=== PATIENT | female | born 2000 | race Caucasian/White ===

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

== ENCOUNTER 2020-01-08 12:35 | Emergency (ER) | payer OTHER, SELFPAY ==
--- NOTE | ~2020-01-08 | US_ITS ---
EXAMINATION: US OB <=14 wk fetus w TV DATE: 01/08/2020 14:43 INDICATION: Pelvic pain during first trimester TECHNIQUE: Real-time pelvic transabdominal and transvaginal ultrasound was performed. COMPARISON: None. FINDINGS: The uterus measures 5.9 x 4.6 x 3.9 cm. The endometrial thickness measures 12 mm. No intra uterine gestational sac is identified. The right ovary measures 2.4 x 2.1 x 2.1 cm. The left ovary me asures 3.4 x 4.4 x 3.9 cm and contains a 3.8 cm cyst. There is normal vascular flow in the ovaries. T here is a small amount of likely physiologic free fluid in the pelvis. IMPRESSION: 1. of unknown location. Although no intrauterine gestational sac is seen, this may be due t o early gestation. If the patient is clinically stable, recommend followup with serial beta-hCG and u ltrasound. Reviewed, dictated and finalized at location A. IMPRESSION: 1. of unknown location. Although no intrauterine gestational sac is s een, this may be due to early gestation. If the patient is clinically stable, r ecommend followup with serial beta-hCG and ultrasound.
[2020-01-08 12:38] VITALS: BP 150/70; PULSE 77; RESP 18; TEMP 36.8; O2SAT 100
[2020-01-08 14:10] LABS: Basophils Percent Auto 0.3 % (0.2-1.2); Eosinophils Percent Auto 0.5 % (0-4.4); Hematocrit 37.7 % (37.0-47.0); Hemoglobin 12.7 g/dL (12.0-15.0); Immature Granulocyte Absolute 0.01 K/mm3 (0.00-0.031); Immature Granulocyte Percent A 0.2 % (0-0.5); Lymphocytes Absolute Auto 1.56 K/mm3 (0.9-3.2); Lymphocytes Percent Auto 23.6 % (18.3-44.2); Mean Corpuscular HGB Conc 33.7 g/dl (32-36); Mean Corpuscular Volume 89.1 fl (80-100); Mean Platelet Volume 10.3 fl (7.4-10.4); Monocytes Absolute Auto 0.4 K/mm3 (0.1-0.6); Monocytes Percent Auto 5.4 % (2.6-8.5); Neutrophils Absolute Auto 4.6 K/mm3 (1.3-6.7); Platelet Count Result 327 k/mm3 (150-375); Red Blood Count 4.23 M/mm3 (4.2-5.4); Red Cell Distribution Width 12.1 % (11.5-14.5); White Blood Count 6.6 K/mm3 (4.5-10.0)
[2020-01-08 14:17] LABS: Add Urine Microscopic? NO; Appearance Urine Clear (Clear); Bilirubin Urine Negative (Negative); Blood Urine Negative (Negative); Color Urine Yellow (Yellow); Glucose Urine UA Negative (Negative); Ketones Urine Negative (Negative); Leukocyte Esterase Ur Negative LEU/UL (Negative); Nitrate Urine Negative (Negative); Protein Urine Negative (Negative); Specific Grav Ur 1.025 (1.001-1.035); Urobilinogen Urine Negative mg/dL (<2.0)
[2020-01-08 14:22] LABS: Alanine Aminotransferase 13 U/L (4-35); Albumin Level 4.3 g/dL (3.7-5.6); Alkaline Phosphatase 52 U/L (45-116); Anion Gap 7 mmol/L (8-16); Aspartate Amino Transferase 22 U/L (14-36); Bilirubin,Total 0.6 mg/dL (0.2-1.3); Blood Urea Nitrogen 12 mg/dL (8-21); Calcium 9.7 mg/dL (8.9-10.7); Carbon Dioxide 26 mmol/L (22-30); Chloride 106 mmol/L (98-107); Estimated CRCL calculation 88 ml/min; Estimated Glomerular Filt Rate > 60; Glucose 83 mg/dL (65-105); Potassium 3.9 mmol/L (3.4-5.0); Sodium 139 mmol/L (134-143)
[2020-01-08 14:39] LABS: Beta HCG Quantitative 179.69 mIU/ML
--- NOTE | 2020-01-08 15:06 | ED.GENADULT ---
HPI - General Adult General Chief complaint: Unspecified Stated complaint: needs test, needs doctors note Time Seen by Provider: 01/08/20 12:52 Source: patient Mode of arrival: ambulatory Limitations: no limitations History of Present Illness HPI narrative: This is a 19-year-old G1, P0, about 4-1/2 weeks by last menstrual period who presents to the emergency department for verification of . Reports she had a couple of positive test at home yesterday. Reports she has been having some intermittent pelvic cramping. Otherwise has no concerns. Denies nausea, vomiting, vaginal bleeding, dysuria, or hematuria. Related Data Home Medications Medication Instructions Recorded Confirmed citalopram 20 mg PO DAILY 07/01/19 07/01/19 Allergies Allergy/AdvReac Type Severity Reaction Status Date / Time blue dye Allergy Unknown Verified 01/08/20 12:40 Review of Systems Review of Systems: Narrative: CONSTITUTIONAL: Denies fever GASTROINTESTINAL: Reports abdominal/pelvic pain. Denies nausea, vomiting GENITOURINARY: Denies dysuria or hematuria. All systems reviewed & are unremarkable except as noted in HPI and below PMFSH Past Medical History Medical History (Updated 01/08/20 @ 16:08 by Priscilla Tenorio PA-C) History of anxiety Social History Social History (Updated 07/01/19 @ 15:00 by Cristina Mitchell CNP) Smoking status: Never smoker Exam Narrative: Exam Narrative: GENERAL: Well-appearing, well-nourished, and in no acute distress. HEAD: Normocephalic, atraumatic. EYES: EOMI. CHEST: Clear to auscultation. No respiratory distress. No wheezes rales or rhonchi HEART: Regular rate and rhythm. No murmur heard. Normal peripheral pulses. ABDOMEN: Soft, nontender, nondistended, normal active bowel sounds. EXTREMITIES: Normal range of motion. No edema. SKIN: Warm, dry, no rash. NEURO: No focal deficits. Alert and oriented x3. PSYCH: Normal mood and affect Course Vital Signs Vital signs: Vital Signs Temperature 98.2 F 01/08/20 12:38 Pulse Rate 77 01/08/20 12:38 Respiratory Rate 18 01/08/20 12:38 Blood Pressure 150/70 H 01/08/20 12:38 Pulse Oximetry 100 01/08/20 12:38 Temperature 98.2 F 01/08/20 12:38 Pulse Rate 77 01/08/20 12:38 Respiratory Rate 18 01/08/20 12:38 Blood Pressure 150/70 H 01/08/20 12:38 Pulse Oximetry 100 01/08/20 12:38 Medical Decision Making MDM Narrative Medical decision making narrative: Patient presents today for department for verification of . Reports she had a couple of positive test at home yesterday. Reports she has been having some intermittent pelvic cramping. Denies any vaginal bleeding. Patient is afebrile and nontoxic-appearing. CBC and metabolic panel without concerning changes. UA without evidence of infection. Quantitative beta-hCG was 179. Obstetrics ultrasound shows of unknown location. Recommend follow-up with serial beta hCG and ultrasound. Spoke with patient and family about work-up. I was awaiting consult from on-call OB and patient eloped Vital Signs Vital Signs: Vital Signs Temperature 98.2 F 01/08/20 12:38 Pulse Rate 77 01/08/20 12:38 Respiratory Rate 18 01/08/20 12:38 Blood Pressure 150/70 H 01/08/20 12:38 Pulse Oximetry 100 01/08/20 12:38 Temperature 98.2 F 01/08/20 12:38 Pulse Rate 77 01/08/20 12:38 Respiratory Rate 18 01/08/20 12:38 Blood Pressure 150/70 H 01/08/20 12:38 Pulse Oximetry 100 01/08/20 12:38 Lab Data Lab results reviewed: Yes I reviewed the patient's lab results. Result diagrams: 01/08/20 14:01 01/08/20 13:55 Labs: Lab Results 01/08/20 01/08/20 01/08/20 Range/Units 13:55 14:01 14:10 WBC 6.6 (4.5-10.0) K/mm3 RBC 4.23 (4.2-5.4) M/mm3 Hgb 12.7 (12.0-15.0) g/dL Hct 37.7 (37.0-47.0) % MCV 89.1 (80-100) fl MCH 30.0 (26-34) pg MCHC 33.7 (32-36) g/
--- NOTE | 2020-01-08 16:23 | PC.NURSE ---
pt left the dept, without dc papers and without telling staff insole lip turner and provider made aware. pt did not have iv placed during ed visit
== END 2020-01-08 16:25 | disposition left against medical advice (07) ==
PROVIDERS: Physician Assistant; Emergency Provider Emergency Medicine
DX: O26.891 Other specified pregnancy related conditions, first trimester (principal); R10.2 Pelvic and perineal pain; O99.341 Other mental disorders complicating pregnancy, first trimester; F41.9 Anxiety disorder, unspecified; Z3A.01 Less than 8 weeks gestation of pregnancy
CPT/HCPCS: 36415; 76801; 76817; 80053; 81003; 81025; 84702; 85025; 99284

== ENCOUNTER 2021-09-04 12:47 | Outpatient (CLI) | payer OTHER, SELFPAY ==
--- NOTE | ~2021-09-04 | US_ITS ---
EXAMINATION: US OB <= 14 weeks fetus DATE: 09/04/2021 13:42 INDICATION: Assess dating and viability of first trimester . TECHNIQUE: Real-time pelvic ultrasound utilizing both a transvaginal and transabdominal probe was pe rformed. The interpreting radiologist was not present for the study. COMPARISON: None. FINDINGS: The uterus measures 10.8 x 5.3 x 7.2 cm. There is an intrauterine gestational sac. A yolk sac and fe aron pole are identified. The crown rump length measures 3.2 cm, which correlates with an estimated ge stational age of 10 weeks and 0 days. heart motion is identified measuring 157 beats per minute (bpm) by M-mode Doppler. The right ovary measures 4.3 x 2.2 x 2.9 cm. The left ovary measures 3.9 x 1.9 x 1.6 cm. Vascular velma w identified in both ovaries on color Doppler. There is no free fluid in the pelvis. IMPRESSION: 1. Single living fetus with heart rate of 157 bpm. 2. Gestational age by ultrasound of 10 weeks 0 day(s) +/- 6 day(s) with ultrasound estimated date of delivery (MALIKA) of 04/02/2022. Reviewed, dictated and finalized at location B. IMPRESSION: 1. Single living fetus with heart rate of 157 bpm. 2. Gestational age by ultrasound of 10 weeks 0 day(s) +/- 6 day(s) with ultras ound estimated date of delivery (MALIKA) of 04/02/2022.
== END 2021-09-04 12:48 | disposition home or self-care (01) ==
PROVIDERS: Visit Provider Student in an Organized Health Care Education/Training Program
DX: Z34.91 Encounter for supervision of normal pregnancy, unspecified, first trimester (principal); Z3A.10 10 weeks gestation of pregnancy
CPT/HCPCS: 76801

== ENCOUNTER 2021-10-03 12:16 | Outpatient (CLI) | payer OTHER, SELFPAY ==
[2021-10-03 12:54] LABS: Basophils Percent Auto 0.2 % (0.2-1.2); Eosinophils Percent Auto 0.3 % (0-4.4); Hematocrit 34.6 % (37.0-47.0); Hemoglobin 11.8 g/dL (12.0-15.0); Immature Granulocyte Absolute 0.05 K/mm3 (0.00-0.031); Immature Granulocyte Percent A 0.5 % (0-0.5); Lymphocytes Absolute Auto 1.72 K/mm3 (0.9-3.2); Lymphocytes Percent Auto 17.3 % (18.3-44.2); Mean Corpuscular HGB Conc 34.1 g/dl (32-36); Mean Corpuscular Hemoglobin 29.8 pg (26-34); Mean Corpuscular Volume 87.4 fl (80-100); Mean Platelet Volume 9.6 fl (7.4-10.4); Monocytes Absolute Auto 0.5 K/mm3 (0.1-0.6); Neutrophils Absolute Auto 7.6 K/mm3 (1.3-6.7); Neutrophils Percent Auto 76.7 % (45.5-73.1); Platelet Count Result 347 k/mm3 (150-375); Red Blood Count 3.96 M/mm3 (4.2-5.4); Red Cell Distribution Width 12.7 % (11.5-14.5)
[2021-10-03 13:36] LABS: Vitamin D 25 Hydroxy 64.6 ng/mL
[2021-10-03 13:52] LABS: HIV 1/2 Ab P24 Ag Result Negative (Negative)
[2021-10-03 14:37] LABS: Add Urine Microscopic? YES; Appearance Urine Clear (Clear); Bilirubin Urine Negative (Negative); Blood Urine Negative (Negative); Color Urine Yellow (Yellow); Glucose Urine UA Negative (Negative); Ketones Urine Negative (Negative); Leukocyte Esterase Ur Trace LEU/UL (NEGATIVE); Nitrate Urine Negative (Negative); Protein Urine Negative (Negative); Urobilinogen Urine 0.2 mg/dL (<2.0); pH Urine 6.5 (5.0-9.0)
[2021-10-03 14:41] LABS: RBC Urine 0-2 /hpf (0-2); Squamous Epithelial Cell Urine Moderate /hpf (Few); WBC Urine 0-3 /hpf (0-3)
[2021-10-03 20:48] LABS: Hepatitis B Surface Antigen Negative (Negative); Rubella IgG Antibody 59.7 IU/ML
[2021-10-03 21:03] LABS: Hepatitis C Virus Antibody Negative (Negative)
[2021-10-04 07:12] LABS: Rapid Plasma Reagin Non-Reactive (NonReactive)
[2021-10-06 13:58] LABS: Hematocrit 36.2 % (35.0-45.0); Hemoglobin 11.6 g/dL (11.7-15.5); MCH 29.1 pg (27.0-33.0); RDW 12.5 % (11.0-15.0); Red Blood Cell Count 3.98 Mill/uL (3.80-5.10)
[2021-10-11 14:06] LABS: CF Result POSITIVE (NEGATIVE); Ethnicity NG
== END 2021-10-03 12:17 | disposition home or self-care (01) ==
PROVIDERS: Visit Provider Student in an Organized Health Care Education/Training Program
DX: Z34.02 Encounter for supervision of normal first pregnancy, second trimester (principal); F12.90 Cannabis use, unspecified, uncomplicated; Z3A.00 Weeks of gestation of pregnancy not specified
CPT/HCPCS: 36415; 81001; 81220; 82306; 83021; 84443; 85025; 86592; 86703; 86762; 86787; 86803; 86850; 86900; 86901; 87086; 87340; G0432

== ENCOUNTER 2021-12-12 10:23 | Observation (INO) | payer OTHER, SELFPAY ==
[2021-12-12 10:43] VITALS: BP 117/69; PULSE 92; BMI 20.8
--- NOTE | 2021-12-12 10:44 | OBADM ---
This patient, Cipriano Bean, admitted to the OB room OB Post 117 for observation. Patient/family oriented to hospital policies and general routines including ID bracelet, bed and alarms, visiting hours, pain management, procedures, bathroom and other care routines, personal items, smoking policy, room service/diet, and visiting hours. Patient/Family are encouraged to report perceived risks to care and to ask questions if they do not understand what they are told or what they should do.
[2021-12-12 10:45] VITALS: BP 123/71; PULSE 94
[2021-12-12 11:00] VITALS: BP 119/67; PULSE 90
--- NOTE | 2021-12-12 11:00 | PC.NURSE ---
1045- Patient presents with complaints of hip pain, pelvic pain, headache and swelling of lower legs. Patient reports she last took tylenol yesterday. Urine sent. Will call Dr. Tovar for other orders.
[2021-12-12 11:46] LABS: Appearance Urine Clear (Clear); Bilirubin Urine Negative (Negative); Blood Urine Negative (Negative); Color Urine Yellow (Yellow); Glucose Urine UA Negative (Negative); Ketones Urine Negative (Negative); Leukocyte Esterase Ur Trace LEU/UL (Negative); Nitrate Urine Negative (Negative); Protein Urine Negative (Negative); Urobilinogen Urine 0.2 mg/dL (<2.0); pH Urine 7.5 (5.0-9.0)
--- NOTE | 2021-12-12 11:53 | PC.NURSE ---
1145- results reviewed, per Dr. Tovar, orders to discharge to home with belly band and Tylenol.
[2021-12-12 12:00] LABS: Bacteria Urine Trace /hpf; Mucus Urine Rare /lpf; RBC Urine 0-2 /hpf (0-2); Squamous Epithelial Cell Urine Many /hpf (Few); WBC Urine 0-3 /hpf
[2021-12-12 12:09] LABS: Add Urine Microscopic? YES
--- NOTE | 2022-01-10 11:37 | PM.OBTRLD ---
OB - Triage/Final Diagnosis Visit Information Comments/Additional reasons for admission: I have assessed the risk for this patient, Cipriano Bean, and determined that she would benefit from observation care. Evaluation Laboratory results: Laboratory Tests 12/12/21 10:57 Urine Color Yellow Urine Appearance Clear Urine pH 7.5 Ur Specific [place] 1.020 Urine Protein Negative Urine Glucose (UA) Negative Urine Ketones Negative Ur Blood (Man) Negative Urine Nitrate Negative Urine Bilirubin Negative Urine Urobilinogen 0.2 Leukocyte Esterase Rfl Trace H Urine RBC 0-2 Urine WBC 0-3 Ur Squamous Epith Cells Many H Urine Bacteria Trace Urine Mucus Rare Final Diagnosis (1) Headache in : Code(s): O26.899 - Other specified related conditions, unspecified trimester; R51.9 - Headache, unspecified Status: Acute
== END 2021-12-12 11:54 | disposition home or self-care (01) ==
PROVIDERS: Admitting Provider Student in an Organized Health Care Education/Training Program; Visit Provider Student in an Organized Health Care Education/Training Program
DX: O99.891 Other specified diseases and conditions complicating pregnancy (principal); Z3A.00 Weeks of gestation of pregnancy not specified; M25.559 Pain in unspecified hip; R10.2 Pelvic and perineal pain; R51.9 Headache, unspecified; R22.43 Localized swelling, mass and lump, lower limb, bilateral
CPT/HCPCS: 81001; G0378; G0379

== ENCOUNTER 2021-12-26 13:33 | Outpatient (CLI) | payer OTHER, SELFPAY ==
[2021-12-26 15:04] LABS: Basophils Percent Auto 0.2 % (0.2-1.2); Eosinophils Absolute Auto 0.1 K/mm3 (0-0.3); Eosinophils Percent Auto 0.4 % (0-4.4); Hematocrit 32.2 % (37.0-47.0); Hemoglobin 10.7 g/dL (12.0-15.0); Immature Granulocyte Absolute 0.08 K/mm3 (0.00-0.031); Immature Granulocyte Percent A 0.6 % (0-0.5); Lymphocytes Absolute Auto 1.63 K/mm3 (0.9-3.2); Lymphocytes Percent Auto 12.2 % (18.3-44.2); Mean Corpuscular HGB Conc 33.2 g/dl (32-36); Mean Corpuscular Hemoglobin 30.5 pg (26-34); Mean Corpuscular Volume 91.7 fl (80-100); Mean Platelet Volume 9.7 fl (7.4-10.4); Monocytes Absolute Auto 0.6 K/mm3 (0.1-0.6); Monocytes Percent Auto 4.3 % (2.6-8.5); Neutrophils Percent Auto 82.3 % (45.5-73.1); Platelet Count Result 337 k/mm3 (150-375); Red Blood Count 3.51 M/mm3 (4.2-5.4); White Blood Count 13.4 K/mm3 (4.5-10.0)
[2021-12-26 15:19] LABS: Glucose 1 Hour PP 50gm Dose 130 mg/dL
== END 2021-12-26 13:34 | disposition home or self-care (01) ==
LOC: ANHLAB 13:37
PROVIDERS: Visit Provider Student in an Organized Health Care Education/Training Program
DX: Z34.02 Encounter for supervision of normal first pregnancy, second trimester (principal)
CPT/HCPCS: 36415; 82947; 85025

== ENCOUNTER 2022-01-13 10:02 | Observation (INO) | payer OTHER, SELFPAY ==
[2022-01-13 10:23] VITALS: BMI 22.6
--- NOTE | 2022-01-13 10:24 | OBADM ---
This patient, Cipriano Bean, admitted to the OB room OB Post 116 for observation. Patient/family oriented to hospital policies and general routines including ID bracelet, bed and alarms, visiting hours, pain management, procedures, bathroom and other care routines, personal items, smoking policy, room service/diet, and visiting hours. Patient/Family are encouraged to report perceived risks to care and to ask questions if they do not understand what they are told or what they should do.
[2022-01-13 10:31] VITALS: BP 117/76; PULSE 92
--- NOTE | 2022-01-13 10:50 | PC.NURSE ---
[address] Robb, pt here w/ complaint of mild cramping. Orders for SVE and to send urinalysis.
[2022-01-13 10:57] LABS: Add Urine Microscopic? NO; Appearance Urine Clear (Clear); Bilirubin Urine Negative (Negative); Blood Urine Negative (Negative); Color Urine Yellow (Yellow); Glucose Urine UA Negative (Negative); Ketones Urine Negative (Negative); Leukocyte Esterase Ur Negative LEU/UL (Negative); Nitrate Urine Negative (Negative); Protein Urine Negative (Negative); Specific Grav Ur 1.015 (1.001-1.035); Urobilinogen Urine 0.2 mg/dL (<2.0)
--- NOTE | 2022-01-13 11:36 | PC.NURSE ---
1129- Spoke with KODY Donald /, reviewed urinalysis results. Orders to discharge patient to home with labor precautions.
--- NOTE | 2022-02-12 12:48 | PM.OBTRLD ---
OB - Triage/Final Diagnosis Visit Information Comments/Additional reasons for admission: I have assessed the risk for this patient, Cipriano Bean, and determined that she would benefit from observation care. Evaluation Laboratory results: Laboratory Tests 01/13/22 10:43 Urine Color Yellow Urine Appearance Clear Urine pH 6.0 Ur Specific [place] 1.015 Urine Protein Negative Urine Glucose (UA) Negative Urine Ketones Negative Ur Blood (Man) Negative Urine Nitrate Negative Urine Bilirubin Negative Urine Urobilinogen 0.2 Leukocyte Esterase Rfl Negative Final Diagnosis (1) Cramping complicating , antepartum: Code(s): O26.899 - Other specified related conditions, unspecified trimester; R10.9 - Unspecified abdominal pain Status: Acute
== END 2022-01-13 11:55 | disposition home or self-care (01) ==
PROVIDERS: Admitting Provider Student in an Organized Health Care Education/Training Program; Visit Provider Obstetrics & Gynecology
DX: O26.899 Other specified pregnancy related conditions, unspecified trimester (principal); R10.9 Unspecified abdominal pain; Z3A.29 29 weeks gestation of pregnancy
CPT/HCPCS: 81003; G0378; G0379

== ENCOUNTER 2022-01-25 13:14 | Observation (INO) | payer OTHER, SELFPAY ==
[2022-01-25 13:31] VITALS: BP 124/70; PULSE 90
[2022-01-25 13:46] VITALS: BP 126/74; PULSE 85
[2022-01-25 14:01] VITALS: BP 119/71; PULSE 84
[2022-01-25 14:29] VITALS: BMI 22.3
--- NOTE | 2022-01-25 14:30 | OBADM ---
This patient, Cipriano Bean, admitted to the OB room OB Post 115 for observation. Patient/family oriented to hospital policies and general routines including ID bracelet, bed and alarms, visiting hours, pain management, procedures, bathroom and other care routines, personal items, smoking policy, room service/diet, and visiting hours. Patient/Family are encouraged to report perceived risks to care and to ask questions if they do not understand what they are told or what they should do.
--- NOTE | 2022-01-25 14:31 | PC.NURSE ---
1352- Spoke with Dr. Tovar, orders to discharge patient to home with precautions.
--- NOTE | 2022-01-25 14:32 | PC.NURSE ---
1425- Patient asking for a note to be off work indefinitely. informed patient that I could call Dr. Tovar and speak with her about the matter, or she could call and discuss with her on Thursday. patient states that she will call on thursday. Work notegiven for today.
--- NOTE | 2022-02-18 16:58 | PM.OBTRLD ---
OB - Triage/Final Diagnosis Visit Information Comments/Additional reasons for admission: I have assessed the risk for this patient, Cipriano Bean, and determined that she would benefit from observation care. Final Diagnosis (1) contractions: Code(s): O47.00 - False labor before 37 completed weeks of gestation, unspecified trimester Status: Acute
== END 2022-01-25 14:28 | disposition home or self-care (01) ==
PROVIDERS: Admitting Provider Student in an Organized Health Care Education/Training Program; Visit Provider Student in an Organized Health Care Education/Training Program
DX: O47.9 False labor, unspecified (principal); Z3A.00 Weeks of gestation of pregnancy not specified
CPT/HCPCS: G0378; G0379

== ENCOUNTER 2023-11-13 17:49 | Emergency (ER) | payer OTHER, SELFPAY ==
[2023-11-13 17:57] VITALS: BP 130/76; PULSE 108; RESP 18; TEMP 37.6; O2SAT 100
--- NOTE | 2023-11-13 18:11 | ED.NAVMDI ---
HPI - Nausea/Vomiting/Diarrhea General Chief complaint: Nausea/Vomiting/Diarrhea Stated complaint: Vomiting Time Seen by Provider: 11/13/23 18:10 Source: patient, RN notes reviewed and old records reviewed Mode of arrival: ambulatory Limitations: no limitations History of Present Illness HPI Narrative: 23 year old female who presents to [facility] care with complaints of vomiting and diarrhea since 0600 this morning. Patient reports no cough or any sore throat, denies any abdominal pain admits to some chills. Patient reports that she has not taken any OTC medications for her symptoms.Patient reports that she has not had any know ill contacts. Patient reports that her last menses was September 18 that she is not on control and she is sometimes irregular.. Patient reports that she has had 2 diarrhea stools, mainly nausea and vomiting. MD elicited complaint: nausea, vomiting and diarrhea Onset (ago): day(s) (today at 0600) Description of vomiting: food contents Description of diarrhea: watery Associated nausea: Yes Associated abdominal pain: No Treatment prior to arrival: none Related Data Allergies Allergy/AdvReac Type Severity Reaction Status Date / Time blue dye Allergy Unknown Verified 11/13/23 18:09 Review of Systems Review of Systems: CONSTITUTIONAL: Denies fever, states some chills, no sweats. EYES: Denies visual changes, redness, or discharge. ENT: Denies rhinorrhea, congestion, sore throat, or otalgia. CARDIOVASCULAR: Denies chest pain, palpitations, or edema. RESPIRATORY: Denies cough or dyspnea. GASTROINTESTINAL: Denies abdominal pain,positive for nausea, vomiting, and diarrhea. GENITOURINARY: Denies dysuria or hematuria. SKIN: Denies rash or itching. MUSCULOSKELETAL: Denies back pain, joint pain, or myalgia. NEUROLOGIC: Denies headache, numbness, or weakness. PSYCHIATRIC: Denies anxiety or depression. All systems reviewed & are unremarkable except as noted in HPI and below PMFSH Past Medical History Medical History Anxiety Asthma Frequent headaches History of ax 1 History of anxiety History of depression History of miscarriage x 1 History of seizures Migraines Family History Family History Grandparent Throat cancer Family history of cancer Cerebrovascular accident Mother Diabetes mellitus Hypertension Depression Heart disease Father Cerebrovascular accident Depression Sibling Depression Other No active medical problems Social History Social History Smoking status: Current every day smoker Tobacco type: e-cigarettes/vaping Alcohol intake: never Substance use: current Substance use type: marijuana Comments At time of signature, agree with nursing past medical, surgical, social and family history. There is no relevant family history pertinent to the presenting complaint Exam Narrative: GENERAL: Well-appearing, fairl-nourished,pale, and in no acute distress. HEAD: Normocephalic, atraumatic. EYES: PERRLA and EOMI. ENT: Nares clear, no rhinorrhea or epistaxis. Mucous membranes moist. NECK: Supple.no lymphadenopathy CHEST: Clear to auscultation. No respiratory distress.SAO2 100% on room air HEART: Regular rate and rhythm. No murmur heard. Normal peripheral pulses. ABDOMEN: Soft, nontender, nondistended, normal active bowel sounds.positive for nausea vomiting and diarrhea EXTREMITIES: Normal range of motion. No edema. SKIN: Warm, dry, no rash. NEURO: No focal deficits. Alert and oriented x3. Course Course Emergency Course: Patient is aware of diagnosis, understands and agrees to treatment plan.? Anticipatory guidance given.? Patient agrees to follow-up as directed and is aware of reasons to seek care at the emergency department. Portions of this record may have been created with
[2023-11-13 18:26] LABS: BEDSIDEPREGUCG Positive; EDUAAPPEAR Clear; EDUABILI Negative; EDUABLOOD Negative; EDUACOLOR1 Yellow; EDUAGLUCOSE Negative; EDUAKETONE 3+; EDUALEUKO Negative; EDUANITRATE Negative; EDUAPH 5.5; EDUAPROTEIN Negative; EDUAUROBILI 0.2
== END 2023-11-13 18:49 | disposition home or self-care (01) ==
PROVIDERS: Emergency Provider Registered Nurse
DX: O21.9 Vomiting of pregnancy, unspecified (principal); O99.891 Other specified diseases and conditions complicating pregnancy; R19.7 Diarrhea, unspecified; O99.519 Diseases of the respiratory system complicating pregnancy, unspecified trimester; J45.909 Unspecified asthma, uncomplicated; O99.330 Smoking (tobacco) complicating pregnancy, unspecified trimester; F17.290 Nicotine dependence, other tobacco product, uncomplicated; O99.320 Drug use complicating pregnancy, unspecified trimester; F12.90 Cannabis use, unspecified, uncomplicated; Z3A.00 Weeks of gestation of pregnancy not specified
CPT/HCPCS: 81003; 81025; 87077; 87086; 87088; 87186; 99213; G0463

== ENCOUNTER 2024-07-21 11:12 | Emergency (ER) | payer OTHER, SELFPAY ==
[2024-07-21 11:19] VITALS: BP 126/71; PULSE 83; RESP 14; TEMP 36.5; O2SAT 99
[2024-07-21 11:20] VITALS: BP 126/71; O2SAT 100
--- NOTE | 2024-07-21 11:54 | ED.GENADULT ---
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 Patient reports over the past couple of months, she has been having irregular vaginal bleeding. Reports heavy vaginal bleeding, bleeding approximately every 2 weeks. States bleeding began again this morning and has been very heavy, bright red in color. She reports some intermittent cramping, denies significant pain. Reports intermittent nausea, denies vomiting. Denies urinary complaints. Denies chance of . Patient does not currently see an OBGYN. Not on any control. Patient also reports having L submandibular lymphadenopathy. Just noticed this a couple of days ago. It is slightly tender. Denies recent illness, sore throat, cough, congestion, fevers. Related Data Allergies Allergy/AdvReac Type Severity Reaction Status Date / Time blue dye Allergy Unknown Verified 07/21/24 11:13 Review of Systems Review of Systems: All systems reviewed & are unremarkable except as noted in HPI. All systems reviewed & are unremarkable except as noted in HPI and below PMFSH Past Medical History Medical History History of depression History of seizures Anxiety History of miscarriage x 1 History of ax 1 Frequent headaches Migraines Asthma History of anxiety Family History Family History Grandparent Throat cancer Family history of cancer Cerebrovascular accident Mother Diabetes mellitus Hypertension Depression Heart disease Father Cerebrovascular accident Depression Sibling Depression Other No active medical problems Social History Social History Smoking status: Current every day smoker Tobacco type: e-cigarettes/vaping Alcohol intake: never Substance use: current Substance use type: marijuana Exam Narrative: GENERAL: Well appearing, thin, non-toxic, in no acute distress. HEAD: Normocephalic, atraumatic. NECK: Very mild left tonsillar/submandibular lymphadenopathy, minimally tender. This is freely movable, not fixed or firm. No stridor/distress. Otherwise stable range of motion of neck. No other appreciable lymphadenopathy. No supraclavicular lymphadenopathy. RESPIRATORY: Airway patent, respirations nonlabored. Clear to auscultation bilaterally, no rales, rhonchi, wheezing. CARDIOVASCULAR: Regular rate and rhythm ABDOMINAL: Soft, nontender, nondistended. Normoactive BS. PELVIC: Normal external genitalia. Mild amount of dark red vaginal bleeding in vaginal vault. Cervix appears unremarkable. No significant CMT. No significant clots. MUSCULOSKELETAL: Moves all extremities. No gross deformities. SKIN: Warm, dry, normal color. NEURO: A&O X3. Speech clear. PSYCHIATRIC: Anxious, tearful. Normal interaction. Course Vital Signs Vital signs: Vital Signs Temperature 97.7 F 07/21/24 11:19 Pulse Rate 83 07/21/24 11:19 Respiratory Rate 14 07/21/24 11:19 Blood Pressure 126/71 07/21/24 11:19 Pulse Oximetry 99 07/21/24 11:19 Oxygen Delivery Room Air 07/21/24 11:19 Temperature 97.7 F 07/21/24 11:19 Pulse Rate 74 07/21/24 12:53 Respiratory Rate 15 07/21/24 12:53 Blood Pressure 136/82 07/21/24 12:53 Pulse Oximetry 98 07/21/24 12:53 Oxygen Delivery Room Air 07/21/24 11:19 Medical Decision Making [facility] Narrative Medical decision making narrative: Patient presented to ED with abnormal vaginal bleeding, history of irregular cycles recently. Vital signs are stable upon arrival. No evidence of hemodynamic instability. Patient is in no acute distress. Cbc without leukocytosis. H&H is stable. Hemoglobin 10.8. Appears consistent with previous records. Remainder of laboratory studies unremarkable. Pelvic exam without signs of hemorrhage or pooling of fluid. UA with 1+ blood, no signs of infection. Discussed case with Dr. Sander Younger obgyn, advised can start patient on oral control pill, follow-up in office in the next few weeks. Discussed these recommendations with patient. She is in agreement with plan. Agreeable to starting control pill. Prescription sent to pharmacy. Patient advised to monitor bleeding, stay well hydrated, given strict return precautions. She agrees with plan. Feels comfortable going home. Discharged in stable condition. Patient was also reporting left cervical lymphadenopathy. She does have some minimal enlargement of left submandibular vs tonsillar lymph node on exam, feels fairly movable, very soft, not firm, minimally tender. No overlying skin changes. Suspicious for viral etiology. Discussed this with patient and provided reassurance. Discussed warm compresses, NSAIDs, close OP f/u. Medical Records Medical records reviewed: Yes I reviewed the external patient's medical records. Vital Signs Vital Signs: Vital Signs Temperature 97.7 F 07/21/24 11:19 Pulse Rate 83 07/21/24 11:19 Respiratory Rate 14 07/21/24 11:19 Blood Pressure 126/71 07/21/24 11:19 Pulse Oximetry 99 07/21/24 11:19 Oxygen Delivery Room Air 07/21/24 11:19 Temperature 97.7 F 07/21/24 11:19 Pulse Rate 74 07/21/24 12:53 Respiratory Rate 15 07/21/24 12:53 Blood Pressure 136/82 07/21/24 12:53 Pulse Oximetry 98 07/21/24 12:53 Oxygen Delivery Room Air 07/21/24 11:19 Lab Data Lab results reviewed: Yes I reviewed the patient's lab results. 07/21/24 12:03 07/21/24 12:03 Labs: Lab Results 07/21/24 07/21/24 07/21/24 Range/Units 12:03 12:28 12:30 WBC 4.9 (4.5-10.0) K/mm3 RBC 4.12 L (4.2-5.4) M/mm3 Hgb 10.8 L (12.0-15.0) g/dL Hct 34.6 L (37.0-47.0) % MCV 84.0 (80-100) fl MCH 26.2 (26-34) pg MCHC 31.2 L (32-36) g/dl RDW 15.9 H (11.5-14.5) % Plt Count 340 (150-375) k/mm3 MPV 10.1 (7.4-10.4) fl Immature Gran % (Auto) 0.2 (0-0.5) % Neut % (Auto) 64.5 (45.5-73.1) % Lymph % (Auto) 25.9 (18.3-44.2) % [place] % (Auto) 5.7 (2.6-8.5) % Eos % (Auto) 3.1 (0-4.4) % Baso % (Auto) 0.6 (0.2-1.2) % Lymph # (Auto) 1.27 (0.9-3.2) K/mm3 [place] # (Auto) 0.3 (0.1-0.6) K/mm3 Eos # (Auto) 0.2 (0-0.3) K/mm3 Baso # (Auto) 0.0 (0.0-0.1) K/mm3 Abs Immat Gran (auto) 0.01 (0.00-0.031) K/mm3 Absolute Neuts (auto) 3.2 (1.3-6.7) K/mm3 Absolute Nucleated RBC 0.000 (0.0-0.012) K/mm3 Nucleated RBC % 0.0 (0.0-0.2) % PT 14.6 (11.1-14.7) Seconds INR 1.1 APTT 27.0 (22.3-36.8) Seconds Sodium 142 (137-145) mmol/L Potassium 4.0 (3.4-5.0) mmol/L Chloride 105 (98-107) mmol/L Carbon Dioxide 24 (22-30) mmol/L Anion Gap 13 H (4-12) mmol/L BUN 13 (7-17) mg/dL Creatinine 0.89 (0.7-1.0) mg/dL Estim Creat Clear Calc 68 ml/min Estimated GFR > 60 (59 - ) Glucose 97 (65-110) mg/dL Calcium 9.4 (8.4-10.2) mg/dL Urine Color Yellow (Yellow) Urine Appearance Clear (Clear) Urine pH 7.0 (5.0-9.0) Ur Specific [place] 1.028 (1.001-1.035) Urine Protein Trace (Negative) mg/dL Urine Glucose (UA) Negative (Negative) mg/dL Urine Ketones Negative (Negative) mg/dL Ur Blood (Man) 1+ H (Negative) Urine Nitrate Negative (Negative) Urine Bilirubin Negative (Negative) Urine Urobilinogen 0.2 (<2.0) mg/dL Leukocyte Esterase Rfl Negative (Negative) KYUNG/UL Urine RBC 0-2 (0-2) /hpf Urine WBC 0-5 (0-3) /hpf Ur Squamous Epith Cells Occasional (Few) /hpf Urine Bacteria None seen /hpf Urine Casts 0-2 Urine Test Negative Discharge Plan Discharge Clinical Impression: Dysfunctional uterine bleeding Patient Disposition: Home Condition: Stable Instructions: Antibiotic Form, Abnormal (Dysfunctional) Uterine Bleeding (ED), Lymphadenopathy (ED), Menorrhagia (ED) Additional Instructions: Take oral control daily as prescribed. Follow-up with OBGYN for further evaluation. Call office to make appointment within the next few weeks. Continue to monitor symptoms. Return to the ED if you experience worsening or severe bleeding, severe pain, severe dizziness, passing out, unable to keep down food or drink, persistent fevers, or any other symptoms of concern. Patient Language: Finnish Prescriptions: New norgestimate-ethinyl estradiol [Sprintec (28)] 0.25-0.035 mg tablet 1 tablet PO DAILY Qty: 84 0RF No Action ondansetron 4 mg tablet,disintegrating 4 mg PO Q6H PRN (Reason: nausea and vomiting) Qty: 20 0RF amoxicillin-pot clavulanate 875-125 mg tablet 1 tablet PO Q12H 10 Days Qty: 20 0RF Follow-up/Referrals: Byron Hernandez MD [Physician] - (OBGYN) PHYSICIAN,POT BUILDER [Non-Staff] - Time of Disposition: 13:06
--- OUTSIDE RECORDS SUMMARY | 2024-07-21 11:58 | XMS_ITS | Continuity of Care Document ---
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 Name Role Phone Villa Latham MD Unavailable Unavailable Allergies, Adverse Reactions, Alerts Substance Reaction Status Criticality blue dye Active No Information Medications Medication Instructions Dosage Effective Dates (start - stop) Status Comments promethazine 25 mg tablet take 1 tablet by oral route every 6 hours as needed 25 MG - Active PRN for nausea amitriptyline 25 mg tablet take 1 tablet by oral route every day at bedtime 25 MG - Active Zantac 300 mg tablet take 1 tablet by oral route every day at bedtime - Active Procedures Procedure Date OFFICE/OUTPATIENT VISIT, EST OFFICE/OUTPATIENT VISIT, EST PREV VISIT, NEW, AGE 12-17 Advance Directives Directive Yes / No Effective Date File Name No Information Encounters Encounter Description Practice Location Reason(s) For Visit Diagnoses Date Provider Providers Copied on Encounter [facility], [address], [place], [id number], tel:[phone] [facility] Medicine No Information 8 Yeison Driver. [address], [facility] [place], [id number] , [place]. tel:[phone] Referring Provider: Villa Latham, [address], [place], [place], [id number]. tel:[phone] OFFICE/OUTPAT IENT VISIT, [facility], [address], [place], [place], [address], [place] tel:[phone] [facility] abdomnial pain1 (chief complaint) Abdominal painVomitingGERD w/o esophagitis 8 Yeison Driver. [address], [address], [place], [place], [address] , [place]. tel:[phone] Referring Provider: Mitchel Wilks [address], [place], [place], [address]. tel:[phone] OFFICE/OUTPAT IENT VISIT, [facility], [address], [place], [place], [address], [place] tel:[phone] [facility] cough1 (chief complaint) Acute upper respiratory infection, unspecified 7 Yeison Driver. [address], [address], [place], [place], [address] , [place]. tel:[phone] Referring Provider: Mitchel Wil[address], [place], [place], [id number]. tel:[phone] PREV VISIT, NEW, AGE 12-17 [facility], [address], [place], [place], [address], [place] tel:[phone] [facility] Medicine Physical (chief complaint) Encntr for routine child health exam w/o abnormal findingsAcute upper respiratory infection, unspecified 7 Yeison Driver. [address], [address], [place], [place], [address] , [place]. tel:[phone] Referring Provider: Mitchel Wilks [address], [place], [place], [address]. tel:[phone] Family History Family Member Type Diagnosis Age At Onset Mother Problem (finding) Obesity Brother Problem (finding) Alive and well Father Problem (finding) Alive and well Payers Payer name Insurance type Covered libertarian ID Authoriza tion(s) No Information Social History Type Description Quantity Date Captured Comments Alcohol Use Details Unknown Caffeine Use Details Unknown Tobacco Use Status No Information Smoking Status No Information Sex Female Chief Complaint And Reason For Visit No Information Plan Of Treatment Date Type Action Status Referral Ordered: US EXAM, ABDOM, COMPLETE ordered History Of Present Illness Encounter Date Complaint History Of Prese nt Illness abdomnial pain1 pt has intermitt ent left side abdominal pain on and off for 4 years. Pt states taht everytime she has pain, pt vomits 3-4 times when she has abd pain. Pt states that she has abd pain with vomiting at least once per month Pt canot think of anything triggers it. Pt denies vomiting blood Pt has mild GERD symptoms occassionally Pt c/o sharp pain left lower side of abdomen. Pt states that when the pain occurs, she doubles over with vomiting. Pt denies any diarrhea or constipation. pt denies any blood in stool. Pt currenlty just got over one of the episode. Pt denies any pain right side of abdomen. Pt states that eating or drinking water make the left lower side abdominal pain worse Pt denies any acute issue Pt denies any fever, headache. Pt denies any urinary symtpoms. Pt denie sany fever, chill cough1 Pt c/o produtive coughing with green phlegm, sore throat, sinus symptoms for almost 4 weeks. Pt states that that she coughs all day and not worse when she lay down at night. pt denies any sob or chest pain. Pt deneis any fever, chest pain, pt denies any sick contact. pt denies any recent travel. Pt states that her stomach muscle hurts when she coughs. Physical Pt needs annual physical. . Pt c/o sinus congestion, sore throat, ear pain, frontal headache, difficulty with breathing due to nasal congestion, producitve coughing for one week. Pt denies any fever Pt does have sick contact. Pt denies any sob or chest pain. Pt feels chest congestion Pt denies any other complaints Instructions Date Instruction Additional Infor delia Medications as instructed Relate d to Abdominal pain Educated that antibi otics are not prescribed for viral infections. Related to Acute upper respiratory infection, unspecified Diet and exercise Related to Enc ntr for routine child health exam w/o abnormal findings Assessments Type Assessment Date No Information
[2024-07-21 12:11] LABS: Basophils Percent Auto 0.6 % (0.2-1.2); Eosinophils Absolute Auto 0.2 K/mm3 (0-0.3); Eosinophils Percent Auto 3.1 % (0-4.4); Hematocrit 34.6 % (37.0-47.0); Hemoglobin 10.8 g/dL (12.0-15.0); Immature Granulocyte Absolute 0.01 K/mm3 (0.00-0.031); Immature Granulocyte Percent A 0.2 % (0-0.5); Lymphocytes Absolute Auto 1.27 K/mm3 (0.9-3.2); Lymphocytes Percent Auto 25.9 % (18.3-44.2); Mean Corpuscular HGB Conc 31.2 g/dl (32-36); Mean Corpuscular Hemoglobin 26.2 pg (26-34); Mean Platelet Volume 10.1 fl (7.4-10.4); Monocytes Absolute Auto 0.3 K/mm3 (0.1-0.6); Monocytes Percent Auto 5.7 % (2.6-8.5); Neutrophils Absolute Auto 3.2 K/mm3 (1.3-6.7); Neutrophils Percent Auto 64.5 % (45.5-73.1); Platelet Count Result 340 k/mm3 (150-375); Red Blood Count 4.12 M/mm3 (4.2-5.4); Red Cell Distribution Width 15.9 % (11.5-14.5); White Blood Count 4.9 K/mm3 (4.5-10.0)
[2024-07-21 12:22] LABS: Anion Gap 13 mmol/L (4-12); Blood Urea Nitrogen 13 mg/dL (7-17); Calcium 9.4 mg/dL (8.4-10.2); Carbon Dioxide 24 mmol/L (22-30); Chloride 105 mmol/L (98-107); Estimated CRCL calculation 68 ml/min; Estimated Glomerular Filt Rate > 60; Glucose 97 mg/dL (65-110); Sodium 142 mmol/L (137-145)
[2024-07-21 12:33] LABS: INR 1.1; Prothrombin Time 14.6 Seconds (11.1-14.7)
--- OUTSIDE RECORDS SUMMARY | 2024-07-21 12:33 | XMS_ITS | Continuity of Care Document ---
Author Organization [facility] Address [address] [place] [address] [place] [address] Phone Care Team Providers Care Body Man Name Role Phone Villa Latham MD Unavailable Unavailable Allergies, Adverse Reactions, Alerts Substance Reaction Status Criticality blue dye Active No Information Medications Medication Instructions Dosage Effective Dates (start - stop) Status Comments Zantac 300 mg tablet take 1 tablet by oral route every day at bedtime - Active amitriptyline 25 mg tablet take 1 tablet by oral route every day at bedtime 25 MG - Active promethazine 25 mg tablet take 1 tablet by oral route every 6 hours as needed 25 MG - Active PRN for nausea Procedures Procedure Date OFFICE/OUTPATIENT VISIT, EST OFFICE/OUTPATIENT VISIT, EST PREV VISIT, NEW, AGE 12-17 Advance Directives Directive Yes / No Effective Date File Name No Information Encounters Encounter Description Practice Location Reason(s) For Visit Diagnoses Date Provider Providers Copied on Encounter [facility], [address], [address], tel:[phone] [facility] Medicine No Information 8 Yeison Driver. [address], [facility] [place], [address] , [place]. tel:[phone] Referring Provider: Villa Latham, [address], [place], [place], [address]. tel:[phone] OFFICE/OUTPAT IENT VISIT, [facility], [address], [place], [place], [address], [place] tel:[phone] [facility] abdomnial pain1 (chief complaint) Abdominal painVomitingGERD w/o esophagitis 8 Yeison Driver. [address], [address], [place], [place], [address] , [place]. tel:[phone] Referring Provider: Mitchel Wilks [address], [place], [place], [address]. tel:[phone] OFFICE/OUTPAT IENT VISIT, [facility], [address], [place], [place], [address], [place] tel:[phone] [facility] cough1 (chief complaint) Acute upper respiratory infection, unspecified 7 Yeison Driver. [address], [address], [place], [place], [address] , [place]. tel:[phone] Referring Provider: Mitchel Wilks [address], [place], [place], [address]. tel:[phone] PREV VISIT, NEW, AGE 12-17 [facility], [address], [place], [place], [address], [place] tel:[phone] [facility] Medicine Physical (chief complaint) Encntr for routine child health exam w/o abnormal findingsAcute upper respiratory infection, unspecified 7 Yeison Driver. [address], [address], [place], [place], [address] , [place]. tel:[phone] Referring Provider: Mitchel Wilks [address], [place], [place], [address]. tel:[phone] Family History Family Member Type Diagnosis Age At Onset Mother Problem (finding) Obesity Brother Problem (finding) Alive and well Father Problem (finding) Alive and well Payers Payer name Insurance type Covered alliance party ID Authoriza tion(s) No Information Social History [...]
[2024-07-21 12:46] LABS: Add Urine Microscopic? YES; Appearance Urine Clear (Clear); Bacteria Urine None Seen /hpf; Bilirubin Urine Negative (Negative); Blood Urine 1+ (Negative); Color Urine Yellow (Yellow); Glucose Urine UA Negative (Negative); Ketones Urine Negative (Negative); Leukocyte Esterase Ur Negative LEU/UL (Negative); Nitrate Urine Negative (Negative); Non Pathogenic Casts 0-2; Protein Urine Trace mg/dL (Negative); RBC Urine 0-2 /hpf (0-2); Specific Grav Ur 1.028 (1.001-1.035); Squamous Epithelial Cell Urine Occasional /hpf (Few); Urobilinogen Urine 0.2 mg/dL (<2.0); WBC Urine 0-5 /hpf (0-3)
[2024-07-21 12:51] LABS: Pregnancy On Board Control Positive; Urine Pregnancy Test Negative
[2024-07-21 12:53] VITALS: BP 136/82; PULSE 74; RESP 15; O2SAT 98
== END 2024-07-21 13:23 | disposition home or self-care (01) ==
PROVIDERS: Emergency Provider Physician Assistant
DX: N93.8 Other specified abnormal uterine and vaginal bleeding (principal); J45.909 Unspecified asthma, uncomplicated; F32.A Depression, unspecified; F41.9 Anxiety disorder, unspecified; F17.290 Nicotine dependence, other tobacco product, uncomplicated
CPT/HCPCS: 36415; 80048; 81001; 81025; 85025; 85610; 85730; 99284